=== PATIENT | female | born 1980 | race Caucasian/White ===

== ENCOUNTER 2020-09-23 05:19 | Emergency (ER) | payer OTHER ==
--- NOTE | 2020-09-23 05:22 | ED ---
Psych HPI - General Source: RN notes reviewed, old records reviewed Limitations: no limitations - History of Present Illness MD Complaint: suicidal ideation, feels depressed -: unknown Associated Psychiatric Symptoms: depression, suicidal ideation History of same: Yes Quality: constant Improves With: none Worsens With: none Context: recent alcohol abuse, recent drug abuse Associated Symptoms: denies other symptoms Treatments Prior to Arrival: placed on mental health hold If Self Harm: admits thoughts of self harm <Sridhar Liriano - Last Filed: 09/23/20 06:38> <Mustapha Pham - Last Filed: 09/23/20 13:15> - General Stated Complaint: Petition Time Seen by Provider: 09/23/20 05:22 - History of Present Illness Initial Comments: This is a 40-year-old female to the ER for evaluation patient with intoxication and alcohol intoxication. Patient presents today for evaluation psychiatric illness patient made statements of suicidal Attempt and Not Wanting to Live Anymore Both Tooth Friends and Family. Patient Admits to Saying These Things Here in the ER (Sridhar Liriano) - Related Data Home Medications Medication Instructions Recorded Confirmed Albuterol Sulfate [Proair Hfa] 2 puff INHALATION RT-Q4H PRN 09/23/20 09/23/20 Medroxyprogesterone Acetate 150 mg IM ONCE 09/23/20 09/23/20 [Depo-Provera] Propranolol HCl [Propranolol HCl 60 mg PO DAILY 09/23/20 09/23/20 ER] SUMAtriptan succinate [Sumatriptan 100 mg PO DAILY PRN 09/23/20 09/23/20 Succinate] hydroCHLOROthiazide [Hydrodiuril] 25 mg PO DAILY 09/23/20 09/23/20 Previous Rx's Medication Instructions Recorded Ibuprofen [Motrin] 800 mg PO Q8HR PRN #90 tab 12/07/15 Allergies Allergy/AdvReac Type Severity Reaction Status Date / Time No Known Allergies Allergy Verified 09/23/20 08:33 Review of Systems ROS Other: All systems not noted in ROS Statement are negative. <Sridhar Liriano - Last Filed: 09/23/20 06:38> ROS Other: All systems not noted in ROS Statement are negative. <Mustapha Pham - Last Filed: 09/23/20 13:15> ROS Statement: Those systems with pertinent positive or pertinent negative responses have been documented in the HPI. Past Medical History Past Medical History: Hypertension Additional Past Medical History / Comment(s): insomnia History of Any Multi-Drug Resistant Organisms: None Reported Past Surgical History: No Surgical Hx Reported Additional Past Surgical History / Comment(s): pt. lost twins 4 months ago had d/c after Past Anesthesia/Blood Transfusion Reactions: No Reported Reaction Past Psychological History: ADD/ADHD, Anxiety, Depression Additional Psychological History / Comment(s): pt. states she has also been diagnosed with a high functioning form of autism Past Alcohol Use History: Occasional Past Drug Use History: Marijuana Additional Drug Use History / Comment(s): pt. states she has her medical marijuana card, pt. last used today - Past Family History Mother Additional Family Medical History / Comment(s): pt. states her mother has psychiatric issues, anxiety, depression, bipolar Father Additional Family Medical History / Comment(s): pt. states her father also has psychiatric issues <Sridhar Liriano - Last Filed: 09/23/20 06:38> General Exam General appearance: appears intoxicated Head exam: Present: atraumatic, normocephalic, normal inspection Eye exam: Present: normal appearance, PERRL, EOMI. Absent: scleral icterus, conjunctival injection, periorbital swelling ENT exam: Present: normal exam, mucous membranes moist Neck exam: Present: normal inspection. Absent: tenderness, meningismus, lymphadenopathy Respiratory exam: Present: normal lung sounds bilaterally. Absent: respiratory distress, wheezes, rales, rhonchi, stridor Cardiovascular Exam: Present: regular rate, normal rhythm, normal heart sounds. Absent: systolic murmur, diastolic murmur, rubs, gallop, clicks GI/Abdominal exam: Present: soft, normal bowel sounds. Absent: distended, tenderness, guarding, rebound, rigid Extremities exam: Present: normal inspection, full ROM, normal capillary refill. Absent: tenderness, pedal edema, joint swelling, calf tenderness Back exam: Present: normal inspection Neurological exam: Present: alert, oriented X3, CN II-XII intact Psychiatric exam: Present: normal affect, normal mood Skin exam: Present: warm, dry, intact, normal color. Absent: rash <Sridhar Liriano - Last Filed: 09/23/20 06:38> Course <Sridhar Liriano - Last Filed: 09/23/20 06:38> Vital Signs 09/23/20 09/23/20 09/23/20 05:20 07:00 11:54 Temperature 97.8 F 97.9 F Pulse Rate 117 H 68 90 Respiratory 22 16 18 Rate Blood Pressure 158/94 156/94 149/93 O2 Sat by Pulse 97 95 100 Oximetry - Reevaluation(s) Reevaluation #1: 09/23/20 06:39 Medical record is reviewed (Sridhar Liriano) Reevaluation #2: 09/23/20 06:39 Patient is intoxicated (Sridhar Liriano) Medical Decision Making <Mustapha Pham - Last Filed: 09/23/20 13:15> - Medical Decision Making The patient was deemed to be sober and was evaluated by the EPS service he cur rently is found not to be wrist herself or anyone else he'll be discharged with stated complaint. He will be treated outpatient. (Mustapha Pham) - Lab Data Lab Results 09/23/20 Range/Units 05:55 Urine Opiates Screen Not Detected (NotDetected) Ur Oxycodone Screen Not Detected (NotDetected) Urine Methadone Screen Not Detected (NotDetected) Ur Propoxyphene Screen Not Detected (NotDetected) Ur Barbiturates Screen Not Detected (NotDetected) U Tricyclic Antidepress Not Detected (NotDetected) Ur Phencyclidine Scrn Not Detected (NotDetected) Ur Amphetamines Screen Not Detected (NotDetected) U Methamphetamines Scrn Not Detected (NotDetected) U Benzodiazepines Scrn Not Detected (NotDetected) Urine Cocaine Screen Not Detected (NotDetected) U Marijuana (THC) Screen Detected H (NotDetected) Disposition <Sridhar Liriano - Last Filed: 09/23/20 06:38> Is patient prescribed a controlled substance at d/c from ED?: No <Mustapha Pham - Last Filed: 09/23/20 13:15> Clinical Impression: Adjustment disorder, Alcohol intoxication Disposition: HOME SELF-CARE Condition: Good Instructions (If sedation given, give patient instructions): Mood Disorders (ED), Alcohol Intoxication (ED), Abuse of Alcohol (ED) Referrals: Stanley Hdz MD [Primary Care Provider] - 1-2 days
[2020-09-23 06:24] LABS: Amphetamine Screen,Urine Not Detected (NotDetected); Barbiturate Screen,Urine Not Detected (NotDetected); Benzodiazepines Screen,Urine Not Detected (NotDetected); Cocaine Screen,Urine Not Detected (NotDetected); Methadone Screen, Urine Not Detected (NotDetected); Opiate Screen,Urine Not Detected (NotDetected); Oxycodone Screen, Urine Not Detected (NotDetected); Phencyclidine Screen,Urine Not Detected (NotDetected); Tricyclic Antidepressant,Urine Not Detected (NotDetected); Urn Cannabinoid Scrn Detected (NotDetected)
[2020-09-23 07:06] VITALS: TEMP 97.9
[2020-09-23] MEDS ORDERED: SUMAtriptan succinate 50 MG TAB PO STA (08:30)
[2020-09-23 11:54] VITALS: BP 149/93; PULSE 90; RESP 18
== END 2020-09-23 13:27 | disposition home or self-care (01) ==
LOC: EC 05:19
DX: F43.20 Adjustment disorder, unspecified (principal); F10.129 Alcohol abuse with intoxication, unspecified; I10 Essential (primary) hypertension; F12.90 Cannabis use, unspecified, uncomplicated; Z79.1 Long term (current) use of non-steroidal anti-inflammatories (NSAID); Z79.51 Long term (current) use of inhaled steroids; Z79.3 Long term (current) use of hormonal contraceptives; Z79.899 Other long term (current) drug therapy; Y90.9 Presence of alcohol in blood, level not specified
CPT/HCPCS: 80306; 82075; 99285

== ENCOUNTER → 2023-05-31 | Outpatient (CLI) | payer OTHER ==
--- NOTE | 2023-05-31 14:30 | MM ---
Reason for Exam: Screening (asymptomatic). Baseline mammogram. Patient History: Menarche at age 14. First Full-Term at age 19. Last menstrual period: 05/31/2023 Risk Values: Marion 5 year model risk: 0.5%. NCI Lifetime model risk: 6.5%. Prior Study Comparison: Patient's first Mammogram. No prior studies available for comparison. Tissue Density: The breasts are extremely dense, which lowers the sensitivity of mammography. Findings: Analyzed By CAD. Right breast: There is no suspicious group of microcalcifications or new suspicious mass. Left breast: There is no suspicious group of microcalcifications or new suspicious mass. Overall Assessment: Negative, BI-RAD 1 Management: Screening Mammogram of both breasts in [address] [facility] will attempt to contact patient to return for supplemental views and ultrasound if indicated. Patient should continue monthly self-breast exams. A clinical breast exam by your physician is recommended on an annual basis. This exam should not preclude additional follow-up of suspicious palpable abnormalities. Note on Marion scores and lifetime risk: 1. A Marion score greater than 3% is considered moderate risk. If this is the case, consider specialist referral to assess eligibility for a risk reducing agent. 2. If overall lifetime risk for the development of breast cancer is 20% or higher, the patient may qualify for future screening with alternating mammogram and breast MRI. Electronically signed and approved by: Mustapha Medley DO
== END | disposition home or self-care (01) ==
LOC: RADMAMWWP 11:28
PROVIDERS: ATTEND Internal Medicine
DX: Z12.31 Encounter for screening mammogram for malignant neoplasm of breast (principal)
CPT/HCPCS: 77067

== ENCOUNTER → 2023-06-05 | Outpatient (CLI) | payer OTHER ==
[2023-06-07 10:35] LABS: HCV Qualitative Result DETECTED (Not detected); HCV Quant Log 4.63 (<1.08)
== END | disposition home or self-care (01) ==
LOC: LABWHC1 11:19
PROVIDERS: ATTEND Internal Medicine
DX: B19.20 Unspecified viral hepatitis C without hepatic coma (principal)
CPT/HCPCS: 36415; 87522

== ENCOUNTER 2023-06-28 15:18 | Emergency (ER) | payer OTHER ==
--- NOTE | 2023-06-28 15:57 | ED ---
General Adult HPI - General Chief complaint: Chest Pain Stated complaint: Chest/abd/back pain Time Seen by Provider: 06/28/23 15:35 Source: patient, RN notes reviewed, old records reviewed Mode of arrival: ambulatory Limitations: no limitations - History of Present Illness Initial comments: 43-year-old female presenting for evaluation of palpitations and left upper chest discomfort. Symptoms began yesterday evening. Patient states she has been dealing with left flank pain for the past several weeks and is scheduled for an outpatient CT with concern for kidney stone. This has been ordered by her primary care provider. She was treated for urinary tract infection. Patient denies history of CAD, no history of DVT or PE. Her palpitations and ch est discomfort began yesterday evening and this is left-sided. No vomiting. No diaphoresis. - Related Data Home Medications Medication Instructions Recorded Confirmed Gabapentin [Neurontin] 300 mg PO DAILY 06/28/23 06/28/23 Glecaprevir/Pibrentasvir [Mavyret 3 tab PO DAILY 06/28/23 06/28/23 100-40 mg Tablet] Losartan/Hydrochlorothiazide 1 tab PO DAILY 06/28/23 06/28/23 [Hyzaar 100-25 Tablet] buPROPion SR [Wellbutrin SR] 150 mg PO BID 06/28/23 06/28/23 Allergies Allergy/AdvReac Type Severity Reaction Status Date / Time No Known Allergies Allergy Verified 06/28/23 16:56 Review of Systems ROS Statement: Those systems with pertinent positive or pertinent negative responses have been documented in the HPI. ROS Other: All systems not noted in ROS Statement are negative. Past Medical History Past Medical History: Hypertension Additional Past Medical History / Comment(s): insomnia NEUROPATHY History of Any Multi-Drug Resistant Organisms: None Reported Past Surgical History: No Surgical Hx Reported Additional Past Surgical History / Comment(s): pt. lost twins Past Anesthesia/Blood Transfusion Reactions: No Reported Reaction Past Psychological History: ADD/ADHD, Anxiety, Depression Smoking Status: Current every day smoker Past Alcohol Use History: Occasional Past Drug Use History: Marijuana - Past Family History Mother Additional Family Medical History / Comment(s): pt. states her mother has psychiatric issues, anxiety, depression, bipolar Father Additional Family Medical History / Comment(s): pt. states her father also has psychiatric issues General Exam Limitations: no limitations General appearance: alert, anxious Head exam: Present: atraumatic, normocephalic Eye exam: Present: normal appearance, PERRL ENT exam: Present: normal exam Neck exam: Present: normal inspection Respiratory exam: Present: normal lung sounds bilaterally. Absent: respiratory distress, wheezes Cardiovascular Exam: Present: normal rhythm, tachycardia GI/Abdominal exam: Present: soft. Absent: distended, tenderness, guarding, rebound Extremities exam: Present: normal inspection, normal capillary refill. Absent: pedal edema Neurological exam: Present: alert, oriented X3 Psychiatric exam: Present: anxious Skin exam: Present: warm, dry, intact, normal color Course Vital Signs 06/28/23 06/28/23 15:19 17:23 Temperature 97.6 F Pulse Rate 110 H 81 Respiratory 20 18 Rate Blood Pressure 148/98 128/82 O2 Sat by Pulse 98 100 Oximetry Medical Decision Making - Medical Decision Making Was pt. sent in by a medical professional or institution (, PA, COVER MAKING MACHINE OPERATOR, urgent care, hospital, or group home...) When possible be specific @ -No Did you speak to anyone other than the patient for history (EMS, parent, family, police, friend...)? What history was obtained from this source @ -No Did you review nursing and triage notes (agree or disagree)? Why? @ -I reviewed and agree with nursing and triage notes Were old charts reviewed (outside hosp., previous admission, EMS record, old EKG, old radiological studies, urgent care reports/EKG's, group home records)? Report findings @ -No old charts were reviewed Differential Palpitations Ventricular arrhythmias, atrial arrhythmias, myocardial infarction, anemia, thyrotoxicosis, electrolyte imbalance, hypokalemia, pulmonary embolism, pulmonary disease, drugs, alcohol, anxiety, stress.... This is not meant to be an all-inclusive list. EKG interpreted by me (3pts min.). @EKG sinus rhythm rate of 88, MN interval 128, QRS duration 86, QTc [address] segment elevation X-rays interpreted by me (1pt min.). @ -[CX-ray negative for acute cardiopulmonary findings. CT interpreted by me (1pt min.). @ -None done U/S interpreted by me (1pt. min.). @ CT abdomen pelvis with contrast, negative for acute pathology to explain this patient's left-sided flank pain.] What testing was considered but not performed or refused? (CT, X-rays, U/S, labs)? Why? @ -None What meds were considered but not given or refused? Why? @ -None Did you discuss the management of the patient with other professionals (professionals i.e. , PA, COVER MAKING MACHINE OPERATOR, lab, RT, psych nurse, social welfare administrator, chocolate dipper, teacher, security flex utility officer, case filler)? Give summary @ -No Was smoking cessation discussed for >3mins.? @ -No Was critical care preformed (if so, how long)? @ -No Were there social determinants of health that impacted care today? How? (Homelessness, low income, unemployed, alcoholism, drug addiction, tr ansportation, low edu. Level, literacy, decrease access to med. care, fpc, rehab)? @ -No Was there de-escalation of care discussed even if they declined (Discuss DNR or withdrawal of care, Hospice)? DNR status @ -No What co-morbidities impacted this encounter? (DM, HTN, Smoking, COPD, CAD, Cancer, CVA, ARF, Chemo, Hep., AIDS, mental health diagnosis, sleep apnea, morbid obesity)? @ -Hypertension Was patient admitted / discharged? Hospital course, mention meds given and route, prescriptions, significant lab abnormalities, going to OR and other pertinent info. @ -43-year-old female with left flank pain and palpitations. Workup is performed including EKG, chest x-ray, CT abdomen/pelvis, laboratory testing including CBC, CMP, D-dimer, troponin, urinalysis. The only abnormality found is a anemia with a hemoglobin of 10 without active bleeding. Otherwise her workup is unremarkable. I do feel this patient is stable for continued outpatient follow-up with her primary care provider. Undiagnosed new problem with uncertain prognosis? @ -No Drug Therapy requiring intensive monitoring for toxicity (Heparin, Nitro, Insulin, Cardizem)? @ -No Were any procedures done? @ -No Diagnosis/symptom? @ -Palpitations, flank pain Acute, or Chronic, or Acute on Chronic? @ -[Acute Uncomplicated (without systemic symptoms) or Complicated (systemic symptoms)? @ -Default Side effects of treatment? @ -No Exacerbation, Progression, or Severe Exacerbation? @ -No Poses a threat to life or bodily function? How? (Chest pain, [place], [place], pneumonia, PE, COPD, DKA, ARF, appy, cholecystitis, CVA, Diverticulitis, Homicidal, Suicidal, threat to staff... and all critical care pts) @ -No - Lab Data Result diagrams: 06/28/23 16:14 06/28/23 16:14 Lab Results 06/28/23 06/28/23 06/28/23 Range/Units 16:14 16:14 16:14 WBC 7.8 (3.8-10.6) k/uL RBC 4.04 (3.80-5.40) m/uL Hgb 10.0 L D (11.4-16.0) gm/dL Hct 32.6 L (34.0-46.0) % MCV 80.6 D (80.0-100.0) fL MCH 24.7 L (25.0-35.0) pg MCHC 30.7 L (31.0-37.0) g/dL RDW 15.0 (11.5-15.5) % Plt Count 370 (150-450) k/uL MPV 7.5 Neutrophils % 69 % Lymphocytes % 22 % Monocytes % 5 % Eosinophils % 1 % Basophils % 1 % Neutrophils # 5.3 (1.3-7.7) k/uL Lymphocytes # 1.7 (1.0-4.8) k/uL Monocytes # 0.4 (0-1.0) k/uL Eosinophils # 0.1 (0-0.7) k/uL Basophils # 0.1 (0-0.2) k/uL Hypochromasia Marked Poikilocytosis Slight PT 10.6 (10.0-12.5) sec INR 1.0 (<1.2) APTT 24.0 (22.0-30.0) sec D-Dimer 0.20 (<0.60) mg/L FEU Sodium (137-145) mmol/L Potassium (3.5-5.1) mmol/L Chloride (98-107) mmol/L Carbon Dioxide (22-30) mmol/L Anion Gap mmol/L BUN (7-17) mg/dL Creatinine (0.52-1.04) mg/dL Est GFR (CKD-EPI)AfAm (>60 ml/min/1.73 sqM) Est GFR (CKD-EPI)NonAf (>60 ml/min/1.73 sqM) Glucose (74-99) mg/dL Calcium (8.4-10.2) mg/dL Magnesium (1.6-2.3) mg/dL Total Bilirubin (0.2-1.3) mg/dL AST (14-36) U/L ALT (4-34) U/L Alkaline Phosphatase (38-126) U/L Troponin I (0.000-0.034) ng/mL Total Protein (6.3-8.2) g/dL Albumin (3.5-5.0) g/dL Lipase (23-300) U/L Urine Color Colorless Urine Appearance Clear (Clear) Urine pH 5.5 (5.0-8.0) Ur Specific [place] 1.017 (1.001-1.035) Urine Protein Negative (Negative) Urine Glucose (UA) Negative (Negative) Urine Ketones Negative (Negative) Urine Blood Moderate H (Negative) Urine Nitrite Negative (Negative) Urine Bilirubin Negative (Negative) Urine Urobilinogen <2.0 (<2.0) mg/dL Ur Leukocyte Esterase Negative (Negative) Urine RBC 2 (0-5) /hpf Urine WBC <1 (0-5) /hpf Ur Squamous Epith Cells 3 (0-4) /hpf Hyaline Casts 1 (0-2) /lpf Urine Mucus Rare H (None) /hpf Urine HCG, Qual (Not Detectd) 06/28/23 06/28/23 06/28/23 Range/Units 16:14 16:14 17:01 WBC (3.8-10.6) k/uL RBC (3.80-5.40) m/uL Hgb (11.4-16.0) gm/dL Hct (34.0-46.0) % MCV (80.0-100.0) fL MCH (25.0-35.0) pg MCHC (31.0-37.0) g/dL RDW (11.5-15.5) % Plt Count (150-450) k/uL MPV Neutrophils % % Lymphocytes % % Monocytes % % Eosinophils % % Basophils % % Neutrophils # (1.3-7.7) k/uL Lymphocytes # (1.0-4.8) k/uL Monocytes # (0-1.0) k/uL Eosinophils # (0-0.7) k/uL Basophils # (0-0.2) k/uL Hypochromasia Poikilocytosis PT (10.0-12.5) sec INR (<1.2) APTT (22.0-30.0) sec D-Dimer (<0.60) mg/L FEU Sodium 136 L (137-145) mmol/L Potassium 4.1 (3.5-5.1) mmol/L Chloride 106 (98-107) mmol/L Carbon Dioxide 19 L (22-30) mmol/L Anion Gap 11 mmol/L BUN 18 H (7-17) mg/dL Creatinine 1.01 (0.52-1.04) mg/dL Est GFR (CKD-EPI)AfAm 79 (>60 ml/min/1.73 sqM) Est GFR (CKD-EPI)NonAf 69 (>60 ml/min/1.73 sqM) Glucose 84 (74-99) mg/dL Calcium 9.6 (8.4-10.2) mg/dL Magnesium 2.0 (1.6-2.3) mg/dL Total Bilirubin 0.6 (0.2-1.3) mg/dL AST 27 (14-36) U/L ALT 15 (4-34) U/L Alkaline Phosphatase 59 (38-126) U/L Troponin I <0.012 (0.000-0.034) ng/mL Total Protein 7.9 (6.3-8.2) g/dL Albumin 4.8 (3.5-5.0) g/dL Lipase 115 (23-300) U/L Urine Color Urine Appearance (Clear) Urine pH (5.0-8.0) Ur Specific [place] (1.001-1.035) Urine Protein (Negative) Urine Glucose (UA) (Negative) Urine Ketones (Negative) Urine Blood (Negative) Urine Nitrite (Negative) Urine Bilirubin (Negative) Urine Urobilinogen (<2.0) mg/dL Ur Leukocyte Esterase (Negative) Urine RBC (0-5) /hpf Urine WBC (0-5) /hpf Ur Squamous Epith Cells (0-4) /hpf Hyaline Casts (0-2) /lpf Urine Mucus (None) /hpf Urine HCG, Qual Not Detected (Not Detectd) Disposition Clinical Impression: Palpitations, Left flank pain Disposition: HOME SELF-CARE Condition: Fair Instructions (If sedation given, give patient instructions): Heart Palpitations (ED), Flank Pain (ED) Is patient prescribed a controlled substance at d/c from ED?: No Referrals: Cuba Acosta MD [Primary Care Provider] - 1-2 days Time of Disposition: 18:20
[2023-06-28] MEDS: SODIUM CHLORIDE 0.9% 1,000 ML IV STA (16:13)
[2023-06-28 16:23] LABS: Basophils # (A) 0.1 k/uL (0-0.2); Basophils % (A) 1 %; Eosinophils # (A) 0.1 k/uL (0-0.7); Eosinophils % (A) 1 %; HCT 32.6 % (34.0-46.0); Hypochromasia Marked; Lymphocytes # (A) 1.7 k/uL (1.0-4.8); Lymphocytes % (A) 22 %; MCH 24.7 pg (25.0-35.0); MCHC 30.7 g/dL (31.0-37.0); Mean Platelet Volume 7.5; Monocytes # (A) 0.4 k/uL (0-1.0); Monocytes % (A) 5 %; Neutrophils # (A) 5.3 k/uL (1.3-7.7); Neutrophils % (A) 69 %; Platelet Count 370 k/uL (150-450); Poikilocytosis Slight; RBC 4.04 m/uL (3.80-5.40); WBC 7.8 k/uL (3.8-10.6)
--- NOTE | 2023-06-28 16:29 | XR ---
EXAMINATION TYPE: XR chest 2V DATE OF EXAM: 06/28/2023 4:23 PM CLINICAL INDICATION:Female, 43 years old with history of Chest Pain; COMPARISON: Chest radiographs from 12/03/2015 TECHNIQUE: XR chest 2V Frontal and lateral views of the chest. FINDINGS: Lungs/Pleura: There is no evidence of pleural effusion, focal consolidation, or pneumothorax. Pulmonary vascularity: Unremarkable. Heart/mediastinum: Cardiomediastinal silhouette is unremarkable. Musculoskeletal: No acute osseous pathology. IMPRESSION: No acute cardiopulmonary disease/process.
[2023-06-28 16:34] LABS: ALT 15 U/L (4-34); AST 27 U/L (14-36); African American GFR (CKD) 79 (>60 ml/min/1.73 sqM); Albumin 4.8 g/dL (3.5-5.0); Alkaline Phosphatase 59 U/L (38-126); Anion Gap 11 mmol/L; Blood Urea Nitrogen 18 mg/dL (7-17); Calcium 9.6 mg/dL (8.4-10.2); Carbon Dioxide 19 mmol/L (22-30); Chloride 106 mmol/L (98-107); Glucose 84 mg/dL (74-99); Lipase 115 U/L (23-300); Non-African American GFR(CKD) 69 (>60 ml/min/1.73 sqM); Potassium 4.1 mmol/L (3.5-5.1); Sodium 136 mmol/L (137-145); Total Bilirubin 0.6 mg/dL (0.2-1.3); Total Protein 7.9 g/dL (6.3-8.2)
[2023-06-28 16:36] LABS: Prothrombin Time 10.6 sec (10.0-12.5)
[2023-06-28 16:37] LABS: Appearance,Urine Clear (Clear); Bilirubin,Urine Negative (Negative); Blood,Urine Moderate (Negative); Color,Urine Colorless; Glucose,Urine (UA) Negative (Negative); Hyaline Casts,Urine 1 /lpf (0-2); Ketones,Urine Negative (Negative); Leukocyte Esterase,Urine Negative (Negative); Mucus,Urine Rare /hpf; Nitrite,Urine Negative (Negative); PH, Urine 5.5 (5.0-8.0); Protein,Urine Negative (Negative); RBC,Urine 2 /hpf (0-5); Specific Gravity,Urine 1.017 (1.001-1.035); Squamous Epithelial Cell,Urine 3 /hpf (0-4); Urobilinogen,Urine <2.0 mg/dL (<2.0); WBC,Urine <1 /hpf (0-5)
[2023-06-28 16:38] LABS: MCV 80.6 fL (80.0-100.0)
[2023-06-28] MEDS: ONDANSETRON 4 MG/2 ML VIAL IVP STA (17:19)
--- NOTE | 2023-06-28 18:03 | CT ---
EXAMINATION TYPE: CT abdomen pelvis w con DATE OF EXAM: 06/28/2023 COMPARISON: 12/03/2015 HISTORY: left flank pain CT DLP: 524.4 mGycm Automated exposure control for dose reduction was used. TECHNIQUE: Helical acquisition of images was performed from the lung bases through the pelvis. CONTRAST: Performed without Oral Contrast and with IV Contrast, patient injected with 100 ml mL of Isovue 300. FINDINGS: The lung bases are clear. The gallbladder is normal without distention, wall thickening, pericholecystic fluid or gallstones. T here is no biliary ductal dilatation. There is no focal mass or organomegaly involving the liver, pancreas, spleen or adrenal glands. There is no solid renal mass or hydronephrosis and there is homogeneous contrast enhancement of the r enal parenchyma. The caliber the abdominal aorta is normal is no retroperitoneal adenopathy or hemorr yana. The bowel loops are normal in caliber and there is no evidence of dilatation or obstruction. No infla mmatory changes are identified in the bowel wall or mesentery. There is no free intraperitoneal air or fluid. No pelvic mass, free fluid, abscess or adenopathy. There is a ringlike structure in the vagina in the region of the cervix possibly a pessary or control device and correlation with patient history is recommended. The osseous structures and soft tissues are intact. IMPRESSION: No acute changes within the abdomen or pelvis.
[2023-06-28 19:11] VITALS: BP 132/80; PULSE 77; RESP 20; TEMP 98.6
== END 2023-06-28 18:46 | disposition home or self-care (01) ==
LOC: EC 15:18
DX: R00.2 Palpitations (principal); R10.9 Unspecified abdominal pain; F17.200 Nicotine dependence, unspecified, uncomplicated; F12.90 Cannabis use, unspecified, uncomplicated
CPT/HCPCS: 36415; 93005; 85379; 80053; 83690; 83735; 84484; 85025; 85610; 85730; 81001; 81025; 71046; 74177; 99285; 96374; 96361; J2405; Q9967

== ENCOUNTER 2024-02-14 12:33 | Emergency (ER) | payer OTHER ==
--- NOTE | 2024-02-14 13:05 | ED ---
Recheck HPI - General Chief Complaint: Recheck/Abnormal Lab/Rx Stated Complaint: Abn Labs Time Seen by Provider: 02/14/24 13:05 Source: patient, RN notes reviewed, old records reviewed Mode of arrival: ambulatory Limitations: no limitations - History of Present Illness Initial Comments: Patient is a 43-year-old female sent in by PCP for evaluation of low hemoglobin. Patient reports she has a history of iron deficiency anemia for which she has received iron infusions in the past. She states her last infusion was earlier this year. She was transition to oral iron supplements but has not been taking these as she does not like the taste of them. Patient reports for the past few weeks she has been feeling dizzy, lightheaded, shortness of breath and weak. She reports she has been craving ice chips and having the chills. Patient was seen by PCP yesterday for evaluation of this and was found to have a hemoglobin of 5.8. Patient was contacted today and instructed to come to the ER for blood transfusion. Patient states she has heavy menstrual cycles and has been evaluated by [facility] TE[employer] INSPECTOR without a source. Denies current bleeding. Patient denies any fevers, nausea, vomiting, chest pain, abdominal pain, constipation/diarrhea, urinary complaints or peripheral edema. - Related Data Home Medications Medication Instructions Recorded Confirmed Gabapentin [Neurontin] 300 mg PO DAILY 06/28/23 06/28/23 Glecaprevir/Pibrentasvir [Mavyret 3 tab PO DAILY 06/28/23 06/28/23 100-40 mg Tablet] Losartan/Hydrochlorothiazide 1 tab PO DAILY 06/28/23 06/28/23 [Hyzaar 100-25 Tablet] buPROPion SR [Wellbutrin SR] 150 mg PO BID 06/28/23 06/28/23 Allergies Allergy/AdvReac Type Severity Reaction Status Date / Time No Known Allergies Allergy Verified 06/28/23 16:56 Review of Systems ROS Statement: Those systems with pertinent positive or pertinent negative responses have been documented in the HPI. ROS Other: All systems not noted in ROS Statement are negative. Past Medical History Past Medical History: Hypertension Additional Past Medical History / Comment(s): insomnia NEUROPATHY History of Any Multi-Drug Resistant Organisms: None Reported Past Surgical History: No Surgical Hx Reported, Orthopedic Surgery Additional Past Surgical History / Comment(s): pt. lost twins Past Anesthesia/Blood Transfusion Reactions: No Reported Reaction Past Psychological History: ADD/ADHD, Anxiety, Depression Smoking Status: Current every day smoker Past Alcohol Use History: Occasional Past Drug Use History: Marijuana - Past Family History Mother Additional Family Medical History / Comment(s): pt. states her mother has psychiatric issues, anxiety, depression, bipolar Father Additional Family Medical History / Comment(s): pt. states her father also has psychiatric issues General Exam Limitations: no limitations General appearance: alert, in no apparent distress Respiratory exam: Present: normal lung sounds bilaterally. Absent: respiratory distress, wheezes, rales, rhonchi, stridor Cardiovascular Exam: Present: regular rate, normal rhythm, normal heart sounds. Absent: systolic murmur, diastolic murmur, rubs, gallop, clicks Extremities exam: Present: normal inspection, full ROM, normal capillary refill. Absent: tenderness, pedal edema, joint swelling, calf tenderness Neurological exam: Present: alert, oriented X3, CN II-XII intact Skin exam: Present: warm, dry, intact, pallor Course Vital Signs 02/14/24 02/14/24 02/14/24 12:45 13:08 14:43 Temperature 97.8 F 98.4 F Pulse Rate 73 80 65 Respiratory 20 16 16 Rate Blood Pressure 144/82 117/82 109/73 O2 Sat by Pulse 99 100 Oximetry 02/14/24 02/14/24 02/14/24 14:51 14:52 15:12 Temperature 98.5 F 98.5 F 98.5 F Pulse Rate 74 70 62 Respiratory 16 16 16 Rate Blood Pressure 115/70 115/70 110/63 O2 Sat by Pulse 98 98 98 Oximetry 02/14/24 16:48 Temperature 98.6 F Pulse Rate 68 Respiratory 18 Rate Blood Pressure 112/81 O2 Sat by Pulse 99 Oximetry Medical Decision Making - Medical Decision Making Was pt. sent in by a medical professional or institution (, PA, MANAGER CARDIAC CATH, urgent care, hospital, or detention...) When possible be specific @ -Patient sent by PCP for blood transfusion given hemoglobin 02-12-2024 5.8. Did you speak to anyone other than the patient for history (EMS, parent, family, police, friend...)? What history was obtained from this source @ -No Did you review nursing and triage notes (agree or disagree)? Why? @ -I reviewed and agree with nursing and triage notes Were old charts reviewed (outside hosp., previous admission, EMS record, old EKG, old radiological studies, urgent care reports/EKG's, detention records)? Report findings @ -Yes, I reviewed laboratory studies completed on 02-12-2024. Hemoglobin of 5.8. Differential Diagnosis (chest pain, altered mental status, abdominal pain women, abdominal pain men, vaginal bleeding, weakness, fever, dyspnea, syncope, headache, dizziness, GI bleed, back pain, seizure, CVA, palpatations, mental health, musculoskeletal)? @ -Anemia, hemorrhagic shock, GI bleed... This list is not meant to be all- inclusive EKG interpreted by me (3pts min.). @ -None done X-rays interpreted by me (1pt min.). @ -None done CT interpreted by me (1pt min.). @ -None done U/S interpreted by me (1pt. min.). @ -None done What testing was considered but not performed or refused? (CT, X-rays, U/S, labs)? Why? @ -None What meds were considered but not given or refused? Why? @ -None Did you discuss the management of the patient with other professionals (professionals i.e. , PA, MANAGER CARDIAC CATH, lab, RT, psych nurse, social services specialist, folder taper operator, teacher, chief data officer, home health care case manager)? Give summary @ -No Was smoking cessation discussed for >3mins.? @ -No Was critical care preformed (if so, how long)? @ -No Were there social determinants of health that impacted care today? How? (Homelessness, low income, unemployed, alcoholism, drug addiction, transpor tation, low edu. Level, literacy, decrease access to med. care, [facility], rehab)? @ -No Was there de-escalation of care discussed even if they declined (Discuss DNR or withdrawal of care, Hospice)? DNR status @ -No What co-morbidities impacted this encounter? (DM, HTN, Smoking, COPD, CAD, Cancer, CVA, ARF, Chemo, Hep., AIDS, mental health diagnosis, sleep apnea, morbid obesity)? @ -Iron deficiency anemia Was patient admitted / discharged? Hospital course, mention meds given and route, prescriptions, significant lab abnormalities, going to OR and other pertinent info. @ -Discharge.. 43-year-old female presenting for evaluation of low hemoglobin. Patient sent by PCP as she was found to have a low hemoglobin of 5.8 yesterday. Upon evaluation, history and physical exam completed. Vitals within normal limits. Patient is pale appearing but no signs of acute distress. Laboratory studies will be repeated prior to transfusion, patient is agreeable. CBC remarkable for a microcytic hypochromic anemia with a hemoglobin of 6.1. Laboratory studies otherwise unremarkable. Patient transfused 1 unit PRBC. As patient has no current active bleeding, stable vitals, and patient has had previous workup completed for heavy menstrual cycles patient will be discharged after transfusion. Patient is agreeable. I advised her to follow-up closely with PCP in the next 48 hours. I also recommended close follow-up with L[employer]PS TE[employer] AND INSPECTOR and to start taking iron supplements. Strict return parameters discussed. Patient discharged in stable condition with follow-up to PCP. Patient verbally expresse d understanding and agreement with care plan. Case discussed with ED attending, Dr. Xie. Undiagnosed new problem with uncertain prognosis? @ -No Drug Therapy requiring intensive monitoring for toxicity (Heparin, Nitro, Insulin, Cardizem)? @ -No Were any procedures done? @ -No Diagnosis/symptom? @ -Microcytic hypochromic anemia Acute, or Chronic, or Acute on Chronic? @ -Acute Uncomplicated (without systemic symptoms) or Complicated (systemic symptoms)? @ -Complicated Side effects of treatment? @ -No Exacerbation, Progression, or Severe Exacerbation? @ -No Poses a threat to life or bodily function? How? (Chest pain, USA, [place], pneumonia, PE, COPD, DKA, ARF, appy, cholecystitis, CVA, Diverticulitis, Homicidal, Suicidal, threat to staff... and all critical care pts) @ -Low at this time - Lab Data Result diagrams: 02/14/24 13:07 02/14/24 13:07 Lab Results 02/14/24 02/14/24 02/14/24 Range/Units 12:57 13:07 13:07 WBC 5.7 (3.8-10.6) k/uL RBC 3.51 L (3.80-5.40) m/uL Hgb 6.1 L* (11.4-16.0) gm/dL Hct 21.7 L (34.0-46.0) % MCV 61.8 L (80.0-100.0) fL MCH 17.3 L (25.0-35.0) pg MCHC 27.9 L (31.0-37.0) g/dL RDW 17.0 H (11.5-15.5) % Plt Count 336 (150-450) k/uL MPV 7.1 Neutrophils % (Manual) 62 % Lymphocytes % (Manual) 28 % Monocytes % (Manual) 5 % Eosinophils % (Manual) 6 % Neutrophils # (Manual) 3.53 (1.3-7.7) k/uL Lymphocytes # (Manual) 1.60 (1.0-4.8) k/uL Monocytes # (Manual) 0.29 (0-1.0) k/uL Eosinophils # (Manual) 0.34 (0-0.7) k/uL Nucleated RBCs 0 (0-0) /100 WBC Manual Slide Review Performed Large Platelets Present Hypochromasia Marked Poikilocytosis Slight Poikilocytosis (manual Present Anisocytosis Slight Anisocytosis (manual) Present Microcytosis Marked PT (10.0-12.5) sec INR (<1.2) APTT (22.0-30.0) sec Sodium 135 L (137-145) mmol/L Potassium 3.9 (3.5-5.1) mmol/L Chloride 105 (98-107) mmol/L Carbon Dioxide 24 (22-30) mmol/L Anion Gap 6 mmol/L BUN 7 (7-17) mg/dL Creatinine 0.71 (0.52-1.04) mg/dL Est GFR (CKD-EPI)AfAm >90 (>60 ml/min/1.73 sqM) Est GFR (CKD-EPI)NonAf >90 (>60 ml/min/1.73 sqM) Glucose 81 (74-99) mg/dL Calcium 9.4 (8.4-10.2) mg/dL Total Bilirubin 0.5 (0.2-1.3) mg/dL AST 20 (14-36) U/L ALT 11 (4-34) U/L Alkaline Phosphatase 48 (38-126) U/L Total Protein 7.2 (6.3-8.2) g/dL Albumin 4.5 (3.5-5.0) g/dL Blood Type O Negative Blood Type Recheck O Neg Bld Type Recheck Status No Antibody Screen NEGATIVE Crossmatch See Detail Spec Expiration Date 02/17/2024 - 235602/14/24 Range/Units 13:07 WBC (3.8-10.6) k/uL RBC (3.80-5.40) m/uL Hgb (11.4-16.0) gm/dL Hct (34.0-46.0) % MCV (80.0-100.0) fL MCH (25.0-35.0) pg MCHC (31.0-37.0) g/dL RDW (11.5-15.5) % Plt Count (150-450) k/uL MPV Neutrophils % (Manual) % Lymphocytes % (Manual) % Monocytes % (Manual) % Eosinophils % (Manual) % Neutrophils # (Manual) (1.3-7.7) k/uL Lymphocytes # (Manual) (1.0-4.8) k/uL Monocytes # (Manual) (0-1.0) k/uL Eosinophils # (Manual) (0-0.7) k/uL Nucleated RBCs (0-0) /100 WBC Manual Slide Review Large Platelets Hypochromasia Poikilocytosis Poikilocytosis (manual Anisocytosis Anisocytosis (manual) Microcytosis PT 10.4 (10.0-12.5) sec INR 0.9 (<1.2) APTT 22.2 (22.0-30.0) sec Sodium (137-145) mmol/L Potassium (3.5-5.1) mmol/L Chloride (98-107) mmol/L Carbon Dioxide (22-30) mmol/L Anion Gap mmol/L BUN (7-17) mg/dL Creatinine (0.52-1.04) mg/dL Est GFR (CKD-EPI)AfAm (>60 ml/min/1.73 sqM) Est GFR (CKD-EPI)NonAf (>60 ml/min/1.73 sqM) Glucose (74-99) mg/dL Calcium (8.4-10.2) mg/dL Total Bilirubin (0.2-1.3) mg/dL AST (14-36) U/L ALT (4-34) U/L Alkaline Phosphatase (38-126) U/L Total Protein (6.3-8.2) g/dL Albumin (3.5-5.0) g/dL Blood Type Blood Type Recheck Bld Type Recheck Status Antibody Screen Crossmatch Spec Expiration Date Disposition Clinical Impression: Microcytic hypochromic anemia Disposition: HOME SELF-CARE Condition: Stable Instructions (If sedation given, give patient instructions): Iron Rich Diet (ED), Anemia (ED) Additional Instructions: Follow-up closely with PCP for reevaluation in the next 48 to 72 hours. Return to the ER for any new or worsening concerns. Is patient prescribed a controlled substance at d/c from ED?: No Referrals: Cuba Acosta MD [Primary Care Provider] - 1-2 days Time of Disposition: 06:29
[2024-02-14 13:21] LABS: Anisocytosis Slight; HCT 21.7 % (34.0-46.0); Hypochromasia Marked; MCH 17.3 pg (25.0-35.0); MCHC 27.9 g/dL (31.0-37.0); MCV 61.8 fL (80.0-100.0); Mean Platelet Volume 7.1; Microcytosis Marked; Platelet Count 336 k/uL (150-450); Poikilocytosis Slight; RBC 3.51 m/uL (3.80-5.40); WBC 5.7 k/uL (3.8-10.6)
[2024-02-14 13:30] LABS: INR 0.9 (<1.2); Partial Thromboplastin Time 22.2 sec (22.0-30.0); Prothrombin Time 10.4 sec (10.0-12.5)
[2024-02-14 13:37] LABS: HGB 6.1 gm/dL (11.4-16.0)
[2024-02-14 13:40] LABS: ALT 11 U/L (4-34); AST 20 U/L (14-36); African American GFR (CKD) >90 (>60 ml/min/1.73 sqM); Albumin 4.5 g/dL (3.5-5.0); Alkaline Phosphatase 48 U/L (38-126); Anion Gap 6 mmol/L; Blood Urea Nitrogen 7 mg/dL (7-17); Calcium 9.4 mg/dL (8.4-10.2); Carbon Dioxide 24 mmol/L (22-30); Chloride 105 mmol/L (98-107); Glucose 81 mg/dL (74-99); Non-African American GFR(CKD) >90 (>60 ml/min/1.73 sqM); Potassium 3.9 mmol/L (3.5-5.1); Sodium 135 mmol/L (137-145); Total Bilirubin 0.5 mg/dL (0.2-1.3); Total Protein 7.2 g/dL (6.3-8.2)
[2024-02-14 13:51] LABS: Nucleated Red Blood Cells 0 /100 WBC (0-0)
[2024-02-14 13:53] LABS: Anisocytosis (M) Present; Eosinophils # (M) 0.34 k/uL (0-0.7); Monocytes # (M) 0.29 k/uL (0-1.0); Neutrophils # (M) 3.53 k/uL (1.3-7.7); Neutrophils % (M) 62 %; Poikilocytosis (M) Present; Total Cells Counted 200
[2024-02-14 13:54] LABS: Large Platelets Present
[2024-02-14 16:49] VITALS: BP 112/81; PULSE 68; RESP 18; TEMP 98.6
== END 2024-02-14 17:00 | disposition home or self-care (01) ==
LOC: EC 12:33
DX: D50.9 Iron deficiency anemia, unspecified (principal); F17.200 Nicotine dependence, unspecified, uncomplicated
CPT/HCPCS: 36415; 93005; 86900; 86901; 80053; 85025; 85610; 85730; 86850; 86920; 99284; 36430; P9016

== ENCOUNTER → 2024-07-01 | Outpatient (CLI) | payer OTHER ==
--- NOTE | 2024-07-01 14:33 | US ---
EXAMINATION TYPE: US pelvis complete transvag DATE OF EXAM: 07/01/2024 COMPARISON: CT 06/28/2023 CLINICAL INDICATION: Female, 44 years old with history of N92.0 EXCESSIVE AND FREQUENT MENSTRUATION; Excessive and frequent menstruation 1 year TECHNIQUE: Transvaginal (TV) and Transabdominal (TA) . Transabdominal grayscale sonographic images of the pelvis were acquired. Transvaginal sonographic im ages were medically necessary to better assess the following anatomy: Doppler imaging: Not performed. FINDINGS: Date of LMP: 06/07/2024 EXAM MEASUREMENTS: Uterus: 8.5 x 5.6 x 6.2 cm Endometrial Stripe: 0.8 cm Right Ovary: 3.9 x 1.7 x 2.6 cm Left Ovary: 2.0 x 1.6 x 1.8 cm 1. Uterus: Anteverted wnl 2. Endometrium: Vascular heterogenous area favored to be within the endometrium measures 5.7x3.5x4.6 cm. ?This area may be visualized on prior [address] abd pelvis? 3. Right Ovary: wnl 4. Left Ovary: wnl 5. Bilateral Adnexa: wnl 6. Posterior cul-de-sac: wnl exam slightly limited by undistended bladder and bowel gas Anteverted uterus with heterogenous vascular area within the uterus in the region of the endometrium or abutting the endometrium measuring 5.7 x 3.5 x 4.6 cm. Both ovaries appear unremarkable. No free f luid. IMPRESSION: Heterogenous vascular lesion within the uterus. This may be within the endometrium versus abutting th e endometrium. Etiologies include fibroid versus endometrial polyp versus other etiologies with malig juanita not excluded. Appearances is favored to represent a fibroid. Recommend further evaluation with MR pelvis. O-RADS 2021 [email or web address] [facility], , 07/01/2024 2:31 PM
== END | disposition home or self-care (01) ==
LOC: RADUSWWP 13:04
PROVIDERS: ATTEND Obstetrics & Gynecology
DX: N92.0 Excessive and frequent menstruation with regular cycle (principal); N85.9 Noninflammatory disorder of uterus, unspecified
CPT/HCPCS: 76830; 76856

== ENCOUNTER 2024-07-04 16:07 | Emergency (ER) | payer OTHER ==
[2024-07-04 16:35] VITALS: RESP 18; TEMP 99.3
--- NOTE | 2024-07-04 17:18 | ED ---
General Adult HPI - General Chief complaint: Recheck/Abnormal Lab/Rx Stated complaint: shortness of breath, palpitations Time Seen by Provider: 07/04/24 16:51 Source: patient Mode of arrival: ambulatory Limitations: no limitations - History of Present Illness Initial comments: Dictation was produced using [employer] dictation software. please excuse any gramma tical, word or spelling errors. Chief Complaint: 44 yo Female presents to the emergency department for hemoglobin check History of Present Illness: 44-year-old female she just found out she had a uterine fibroid. Patient has been having heavy vaginal bleeding for the last several weeks. She has not followed up with her AIR BAG STRIPPER regarding recent ultrasound that showed a uterine fibroid. This point there is no definitive plans for further treatment. She called her AIR BAG STRIPPER and was told to come to the ER should she be experiencing worsening symptoms of weakness. Patient states she has history of iron deficiency anemia. She is concerned that perhaps her hemoglobin is very low which is causing her to feel weak. The ROS documented in this emergency department record has been reviewed and confirmed by me. Those systems with pertinent positive or negative responses have been documented in the HPI. All other systems are other negative and/or noncontributory. - Related Data Home Medications Medication Instructions Recorded Confirmed Gabapentin [Neurontin] 300 mg PO TID 06/28/23 04/16/24 Losartan/Hydrochlorothiazide 1 tab PO DAILY 06/28/23 04/16/24 [Hyzaar 100-25 Tablet] buPROPion SR [Wellbutrin SR] 150 mg PO BID 06/28/23 04/16/24 ALPRAZolam [Xanax] 0.5 mg PO BID 04/07/24 04/16/24 Allergies Allergy/AdvReac Type Severity Reaction Status Date / Time No Known Allergies Allergy Verified 07/04/24 16:34 Review of Systems ROS Statement: Those systems with pertinent positive or pertinent negative responses have been documented in the HPI. ROS Other: All systems not noted in ROS Statement are negative. Past Medical History Past Medical History: Hypertension Additional Past Medical History / Comment(s): insomnia NEUROPATHY History of Any Multi-Drug Resistant Organisms: None Reported Past Surgical History: Orthopedic Surgery Additional Past Surgical History / Comment(s): pt. lost twins Past Anesthesia/Blood Transfusion Reactions: No Reported Reaction Past Psychological History: ADD/ADHD, Anxiety, Depression Smoking Status: Former smoker Past Alcohol Use History: None Reported Past Drug Use History: None Reported - Past Family History Mother Additional Family Medical History / Comment(s): pt. states her mother has psychiatric issues, anxiety, depression, bipolar Father Additional Family Medical History / Comment(s): pt. states her father also has psychiatric issues General Exam - General Exam Comments Initial Comments: PHYSICAL EXAM: General Impression: Alert and oriented x3, not in acute distress HEENT: Normocephalic atraumatic, extra-ocular movements intact, pupils equal and reactive to light bilaterally, mucous membranes moist. Cardiovascular: Heart regular rate and rhythm Chest: Able to complete full sentences, no retractions, no tachypnea Abdomen: abdomen soft, non-tender, non-distended, no organomegaly Musculoskeletal: Pulses present and equal in all extremities, no peripheral edema Motor: no focal deficits noted Neurological: CN II-XII grossly intact, no focal motor or sensory deficits noted Skin: Intact with no visualized rashes Psych: Normal affect and mood Pelvic exam: Deferred Limitations: no limitations Course Vital Signs 07/04/24 07/04/24 16:32 18:20 Temperature 99.3 F Pulse Rate 107 H 78 Respiratory 18 18 Rate Blood Pressure 142/69 129/80 O2 Sat by Pulse 100 100 Oximetry Medical Decision Making - Medical Decision Making Was pt. sent in by a medical professional or institution (DWAIN Segal, MUTUAL FUND ANALYST, urgent care, hospital, or senior care...) When possible be specific @ -No Did you speak to anyone other than the patient for history (EMS, parent, family, police, friend...)? What history was obtained from this source @ -No Did you review nursing and triage notes (agree or disagree)? Why? @ -I reviewed and agree with nursing and triage notes Were old charts reviewed (outside hosp., previous admission, EMS record, old EKG, old radiological studies, urgent care reports/EKG's, senior care records)? Report findings @ -No old charts were reviewed Differential Diagnosis (chest pain, altered mental status, abdominal pain women, abdominal pain men, vaginal bleeding, musculoskeletal, weakness, fever, dyspnea, syncope, headache, dizziness, GI bleed, back pain, seizure, CVA, palpatations, mental health)? @ -Differential Weakness: Hypoglycemia, shock, sepsis, hyponatremia, anemia, infection, VA, ETOH, adverse medicine reaction, overdose, stroke, this is not meant to be an all-inclusive list. EKG interpreted by me (3pts min.). @ -None done X-rays interpreted by me (1pt min.). @ -None done CT interpreted by me (1pt min.). @ -None done U/S interpreted by me (1pt. min.). @ -None done What testing was considered but not performed or refused? (CT, X-rays, U/S, labs)? Why? @ -None What meds were considered but not given or refused? Why? @ -None Was smoking cessation discussed for >3mins.? @ -No Were there social determinants of health that impacted care today? How? (Homelessness, low income, unemployed, alcoholism, drug addiction, transportation, low edu. Level, literacy, decrease access to med. care, residential, rehab)? @ -No Was there de-escalation of care discussed even if they declined (Discuss DNR or withdrawal of care, Hospice)? DNR status @ -No What co-morbidities impacted this encounter? (DM, HTN, Smoking, COPD, CAD, Cancer, CVA, ARF, Chemo, Hep., AIDS, mental health diagnosis, sleep apnea, morbid obesity)? @ -None Was patient admitted / discharged? Hospital course, mention meds given and route, prescriptions, significant lab abnormalities, going to OR and other pertinent info. @ -44-year-old female presents to the emergency department for concerns of anemia. Vital signs are stable. Patient well-appearing at the bedside. Laboratory evaluation obtained. Hemoglobin 7.6 which is around her recent hemoglobin from June 30. Patient has history of anemia. Patient does not meet criteria for blood transfusion at this time. Patient likely would benefit from reevaluation gynecology for management of uterine fibroids likely bleeding and source of anemia. Patient discharged she is given headache cocktail return precautions discussed Did you discuss the management of the patient with other professionals (professionals i.e. , PA, MUTUAL FUND ANALYST, lab, RT, psych nurse, social media community manager, real estate internship, teacher, sheriffs officer, trimming caser)? Give summary @ -No Was critical care preformed (if so, how long)? @ -No Undiagnosed new problem with uncertain prognosis? @ -No Drug Therapy requiring intensive monitoring for toxicity (Heparin, Nitro, Insulin, Cardizem)? @ -No Were any procedures done? @ -No Diagnosis/symptom? Acute, or Chronic, or Acute on Chronic? Uncomplicated (without systemic symptoms) or Complicated (systemic symptoms)? @ -Anemia Side effects of treatment? @ -No Exacerbation, Progression, or Severe Exacerbation? @ -No Poses a threat to life or bodily function? How? (Chest pain, USA, [place], pneumonia, PE, COPD, DKA, ARF, appy, cholecystitis, CVA, Diverticulitis, Homicidal, Suicidal, threat to staff... and all critical care pts) @ -yes - Lab Data Result diagrams: 07/04/24 17:13 07/04/24 17:13 Lab Results 07/04/24 07/04/24 07/04/24 Range/Units 17:13 17:13 17:13 WBC 6.25 (4.50-10.00) 10*3/uL RBC 3.38 L (4.10-5.20) 10*6/uL Hgb 7.6 L (12.0-15.0) g/dL Hct 25.0 L (37.2-46.3) % MCV 74.0 L (80.0-97.0) fL MCH 22.5 L (27.0-32.0) pg MCHC 30.4 L (32.0-37.0) g/dL Plt Count 427 (140-440) 10*3/uL MPV 9.0 L (9.5-12.2) fL Immature Gran % (Auto) 0.2 % Neutrophils % 56.3 % Lymphocytes % 27.8 % Monocytes % 9.3 % Eosinophils % 4.2 % Basophils % 2.2 % Immature Gran # 0.01 (0.00-0.04) 10*3/uL Neutrophils # 3.52 (1.80-7.70) 10*3/uL Lymphocytes # 1.74 (0.90-5.00) 10*3/uL Monocytes # 0.58 (0.20-1.00) 10*3/uL Eosinophils # 0.26 (0.04-0.35) 10*3/uL Basophils # 0.14 H (0.00-0.10) 10*3/uL PT 10.4 (10.0-12.5) sec INR 0.9 (<1.2) APTT 24.0 (22.0-30.0) sec Sodium 132 L (137-145) mmol/L Potassium 3.9 (3.5-5.1) mmol/L Chloride 103 (98-107) mmol/L Carbon Dioxide 19 L (22-30) mmol/L Anion Gap 10 mmol/L BUN 12 (7-17) mg/dL Creatinine 0.79 (0.52-1.04) mg/dL Est GFR (CKD-EPI)AfAm >90 (>60 ml/min/1.73 sqM) Est GFR (CKD-EPI)NonAf >90 (>60 ml/min/1.73 sqM) Glucose 124 H (74-99) mg/dL Calcium 9.6 (8.4-10.2) mg/dL HCG, Quant <2.4 mIU/mL Disposition Clinical Impression: Anemia Disposition: HOME SELF-CARE Condition: Fair Instructions (If sedation given, give patient instructions): Weakness (ED) Is patient prescribed a controlled substance at d/c from ED?: No Referrals: Cuba Acosta MD [Primary Care Provider] - 1-2 days Time of Disposition: 18:33
[2024-07-04 17:32] LABS: Basophils # (A) 0.14 10*3/uL (0.00-0.10); Basophils % (A) 2.2 %; Eosinophils # (A) 0.26 10*3/uL (0.04-0.35); Eosinophils % (A) 4.2 %; HGB 7.6 g/dL (12.0-15.0); Lymphocytes # (A) 1.74 10*3/uL (0.90-5.00); Lymphocytes % (A) 27.8 %; MCH 22.5 pg (27.0-32.0); MCHC 30.4 g/dL (32.0-37.0); Monocytes # (A) 0.58 10*3/uL (0.20-1.00); Monocytes % (A) 9.3 %; Neutrophils # (A) 3.52 10*3/uL (1.80-7.70); Neutrophils % (A) 56.3 %; Platelet Count 427 10*3/uL (140-440); RBC 3.38 10*6/uL (4.10-5.20); RDW 19.9 % (11.5-14.5); WBC 6.25 10*3/uL (4.50-10.00)
[2024-07-04 17:40] LABS: African American GFR (CKD) >90 (>60 ml/min/1.73 sqM); Anion Gap 10 mmol/L; Blood Urea Nitrogen 12 mg/dL (7-17); Calcium 9.6 mg/dL (8.4-10.2); Carbon Dioxide 19 mmol/L (22-30); Chloride 103 mmol/L (98-107); Glucose 124 mg/dL (74-99); INR 0.9 (<1.2); Non-African American GFR(CKD) >90 (>60 ml/min/1.73 sqM); Potassium 3.9 mmol/L (3.5-5.1); Prothrombin Time 10.4 sec (10.0-12.5); Sodium 132 mmol/L (137-145)
[2024-07-04 17:57] LABS: HCG,Quantitative Serum <2.4 mIU/mL
[2024-07-04] MEDS: KETOROLAC 15 MG/ML 1 ML VIAL IVP STA (18:10)
[2024-07-04] MEDS: diphenhydrAMINE 50 MG/ML 1 ML VIAL IVP STA (18:10)
[2024-07-04] MEDS: SODIUM CHLORIDE 0.9% 1,000 ML IV STA (18:11)
[2024-07-04] MEDS: ONDANSETRON 4 MG/2 ML VIAL IVP STA (18:11)
[2024-07-04 18:21] VITALS: BP 129/80; PULSE 78
== END 2024-07-04 18:47 | disposition home or self-care (01) ==
LOC: EC 16:07
DX: D64.9 Anemia, unspecified (principal); Z87.891 Personal history of nicotine dependence
CPT/HCPCS: 36415; 86900; 86901; 80048; 85025; 85610; 85730; 86850; 84702; 99284; 96374; 96375 ×2; 96361; J1200; J2405; J1885

== ENCOUNTER → 2024-09-25 | Outpatient (CLI) | payer OTHER ==
--- NOTE | 2024-09-26 09:38 | MR ---
MR knee LT wo con DATE OF EXAM: 09/25/2024 5:15 PM COMPARISON: Left knee MRI 12/25/2015. CLINICAL INDICATION: Female, 44 years old with history of S83.242A OTH TEAR OF MEDIAL MENISCUS, CURRE NT INJU; PHH, left knee pain, swelling and locking since 2015 TECHNIQUE: Noncontrast multiplanar, multiecho imaging of the left knee was performed, including T1-we ighted and fluid sensitive sequences. FINDINGS: Medial meniscus: Mild truncation of the free is compatible degeneration, no discrete tear. Lateral meniscus: Intact. ACL: Intact. PCL: Intact. MCL: Intact. Lateral ligaments and tendons: Intact. Extensor mechanism: The quadriceps and patellar tendons are intact. Fat pads: Preserved. Articular cartilage: Patellofemoral compartment: Intact. Medial compartment: Mild thinning and surface irregularity without high-grade defect. Lateral compartment: Intact. Bone marrow: No acute fracture. No suspicious osseous lesion or marrow replacing process. Muscles: No muscle atrophy or acute muscle injury. Other soft tissues: No significant joint effusion. Tiny Ventura's cyst. IMPRESSION: 1. Medial meniscal degeneration without discrete tear. 2. Mild medial compartment predominant chondrosis. [facility], , 09/26/2024 9:36 AM
== END | disposition home or self-care (01) ==
LOC: RADMRIMAIN 16:21
PROVIDERS: ATTEND Orthopaedic Surgery
DX: S83.242A Other tear of medial meniscus, current injury, left knee, initial encounter (principal); M17.12 Unilateral primary osteoarthritis, left knee; X58.XXXA Exposure to other specified factors, initial encounter